=== PATIENT | female | born 1995 | race Caucasian/White ===

== ENCOUNTER 2020-08-31 19:06 | Day surgery (SDCO) | payer OTHER ==
[~2020-08-31 19:06] MED LIST: ACETAMINOPHEN500 M1 PO; COLACE100 MG PO; MACROBID100 MG PO; OXY-IR 5MG5 MG PO; PEPCID AC20 MG PO; PRENATAL FORMU1 EACH PO; PROTONIX 40MG T40 MG PO; SUCRALFATE1 GM/10 ML PO; ZOFRAN4 MG PO
[2020-08-31 19:43] LABS: BILIRUBIN NEGATIVE (NEGATIVE); BLOOD TRACE-INTACT Ery/uL (NEGATIVE); CLARITY CLEAR (CLEAR); COLOR YELLOW (YELLOW); GLUCOSE (U) NORMAL (NORMAL); LEUKOCYTES 1+ Leu/uL (NEGATIVE); NITRITE NEGATIVE (NEGATIVE); PROTEIN 1+ mg/dL (NEGATIVE); SPECIFIC GRAVITY >=1.030 (1.001-1.030); UROBILINOGEN 0.2 mg/dL (0.2-1.0)
[2020-08-31 19:49] LABS: BACTERIA 2+
[2020-08-31 21:07] LABS: MCH 29.6 pg (25.0-31.0); MCHC 33.3 g/dL (32.0-36.0); MCV 88.8 fL (78.0-100.0); RBC 3.38 M/uL (4.20-5.40); RDW 14.5 % (11.5-14.0); WBC 12.5 K/uL (4.0-10.5)
[2020-08-31 21:32] LABS: ALBUMIN 2.5 g/dL (3.4-5.0); BILIRUBIN - TOTAL 0.2 mg/dL (0.2-1.0); BUN/CREAT RATIO (CALC) 9.3 RATIO; CREATININE 0.54 mg/dL (0.51-0.95); GLOBULIN (CALCULATION) 3.7 g/dL; POTASSIUM 3.7 mmol/L (3.5-5.1); TOTAL PROTEIN 6.2 g/dL (6.4-8.2); URIC ACID 3.9 mg/dL (2.6-6.2)
== END 2020-09-01 05:58 | disposition home or self-care (01) ==
LOC: FOD 19:06 → FOB 19:15 → FOD 20:32 → FOB 20:33
PROVIDERS: ADMIT Obstetrics & Gynecology
DX: O47.1 False labor at or after 37 completed weeks of gestation (principal); O36.8130 Decreased fetal movements, third trimester, not applicable or unspecified; O16.3 Unspecified maternal hypertension, third trimester; O26.893 Other specified pregnancy related conditions, third trimester; R10.9 Unspecified abdominal pain; M54.9 Dorsalgia, unspecified; O99.213 Obesity complicating pregnancy, third trimester; E66.01 Morbid (severe) obesity due to excess calories; O99.343 Other mental disorders complicating pregnancy, third trimester; F41.9 Anxiety disorder, unspecified; F32.9 Major depressive disorder, single episode, unspecified; F90.9 Attention-deficit hyperactivity disorder, unspecified type; O99.013 Anemia complicating pregnancy, third trimester; O34.219 Maternal care for unspecified type scar from previous cesarean delivery; O24.419 Gestational diabetes mellitus in pregnancy, unspecified control; O23.43 Unspecified infection of urinary tract in pregnancy, third trimester; O99.613 Diseases of the digestive system complicating pregnancy, third trimester; R12 Heartburn; Z3A.38 38 weeks gestation of pregnancy
CPT/HCPCS: 36415; 80053; 81001; 82962; 83615; 84550; G0378; J2405; J7120

== ENCOUNTER 2020-09-10 05:55 | Inpatient (IN) | payer OTHER ==
[2020-09-10 07:31] LABS: HCT 33.4 % (37.0-47.0); MCH 29.3 pg (25.0-31.0); MCHC 32.9 g/dL (32.0-36.0); MCV 89.1 fL (78.0-100.0); MPV 11.1 fL (6.0-9.5); RBC 3.75 M/uL (4.20-5.40); RDW 14.9 % (11.5-14.0); WBC 11.5 K/uL (4.0-10.5)
[2020-09-10 07:34] LABS: BILIRUBIN NEGATIVE (NEGATIVE); BLOOD NEGATIVE Ery/uL (NEGATIVE); CLARITY CLEAR (CLEAR); COLOR YELLOW (YELLOW); GLUCOSE (U) NORMAL (NORMAL); LEUKOCYTES 2+ Leu/uL (NEGATIVE); NITRITE NEGATIVE (NEGATIVE); PROTEIN NEGATIVE (NEGATIVE); UROBILINOGEN 0.2 mg/dL (0.2-1.0)
[2020-09-10 07:40] LABS: URINARY RBC RARE; URINARY WBC 20-50
[2020-09-10 07:41] LABS: BACTERIA 3+; SQUAMOUS EPITHELIAL CELLS >50
[2020-09-10 09:49] LABS: BILIRUBIN NEGATIVE (NEGATIVE); BLOOD 3+ Ery/uL (NEGATIVE); CLARITY CLEAR (CLEAR); COLOR YELLOW (YELLOW); GLUCOSE (U) NORMAL (NORMAL); LEUKOCYTES NEGATIVE Leu/uL (NEGATIVE); NITRITE NEGATIVE (NEGATIVE); PROTEIN NEGATIVE (NEGATIVE); UROBILINOGEN 0.2 mg/dL (0.2-1.0); pH 6.5 (5.0-9.0)
[2020-09-10 10:04] LABS: BACTERIA TRACE; URINARY WBC RARE
[2020-09-10 10:05] LABS: SQUAMOUS EPITHELIAL CELLS RARE
[2020-09-11 05:31] LABS: HCT 28.3 % (37.0-47.0); HGB 9.2 g/dl (12.5-16.0); MCHC 32.5 g/dL (32.0-36.0); MCV 89.3 fL (78.0-100.0); MPV 10.8 fL (6.0-9.5); RBC 3.17 M/uL (4.20-5.40); RDW 14.8 % (11.5-14.0); WBC 13.9 K/uL (4.0-10.5)
== END 2020-09-12 12:05 | disposition home or self-care (01) | DRG 787 ==
LOC: FOB 05:55
PROVIDERS: ADMIT Obstetrics & Gynecology
PROC: 0UN90ZZ Release Uterus, Open Approach (ICD-10-PCS; 2020-09-10)
PROC: 10D00Z1 Extraction of Products of Conception, Low, Open Approach (ICD-10-PCS; principal; 2020-09-10 08:00)
DX: O34.211 Maternal care for low transverse scar from previous cesarean delivery (principal); D62 Acute posthemorrhagic anemia; O10.92 Unspecified pre-existing hypertension complicating childbirth; Z37.0 Single live birth; Z3A.39 39 weeks gestation of pregnancy; O99.02 Anemia complicating childbirth; N73.6 Female pelvic peritoneal adhesions (postinfective); O99.891 Other specified diseases and conditions complicating pregnancy; E66.9 Obesity, unspecified; O99.214 Obesity complicating childbirth; F41.8 Other specified anxiety disorders; O99.344 Other mental disorders complicating childbirth; Z88.8 Allergy status to other drugs, medicaments and biological substances
CPT/HCPCS: 36415; 81001; 86850; 86900; 86901; J0456; J0690; J1885; J2274; J2370; J2405; J2916; J3010; J7050; J7120; U0002